=== PATIENT | female | born 1935 | race Caucasian/White ===

== ENCOUNTER → 2018-06-03 | Outpatient (RCR) | payer MEDICARE, OTHER | END | disposition home or self-care (01) | LOC: CR3 05-04 13:00 | PROVIDERS: ATTEND Internal Medicine | DX: Z29.8 Encounter for other specified prophylactic measures (principal) ==

== ENCOUNTER 2018-07-08 15:39 | Outpatient (RCR) | payer MEDICARE, OTHER | END 2018-07-15 | disposition home or self-care (01) | LOC: CR3 15:39 | PROVIDERS: ATTEND Internal Medicine | DX: Z29.8 Encounter for other specified prophylactic measures (principal) ==

== ENCOUNTER 2018-08-08 13:37 | Outpatient (RCR) | payer MEDICARE, OTHER | END 2018-08-24 | disposition home or self-care (01) | LOC: CR3 13:37 | PROVIDERS: ATTEND Internal Medicine | DX: Z29.8 Encounter for other specified prophylactic measures (principal) ==

== ENCOUNTER 2018-11-09 13:03 | Outpatient (RCR) | payer MEDICARE, OTHER | END 2018-11-22 09:57 | disposition home or self-care (01) | PROVIDERS: ATTEND Internal Medicine | DX: M25.512 Pain in left shoulder (principal) ==

== ENCOUNTER 2022-04-03 10:25 | Outpatient (RCR) | payer MEDICARE, OTHER | END 2022-04-05 | disposition home or self-care (01) | LOC: CR 10:25 | DX: Z29.8 Encounter for other specified prophylactic measures (principal); Z95.5 Presence of coronary angioplasty implant and graft | CPT/HCPCS: 93798 ==

== ENCOUNTER 2022-05-04 15:21 | Outpatient (RCR) | payer MEDICARE, OTHER | END 2022-05-06 | disposition home or self-care (01) | LOC: CR 15:21 | PROVIDERS: ATTEND Internal Medicine Cardiovascular Disease | DX: Z29.8 Encounter for other specified prophylactic measures (principal); Z95.5 Presence of coronary angioplasty implant and graft | CPT/HCPCS: 93798 ==

== ENCOUNTER → 2022-06-05 | Outpatient (RCR) | payer MEDICARE, OTHER | END | disposition home or self-care (01) | LOC: CR 05-08 07:21 | PROVIDERS: ATTEND Internal Medicine Cardiovascular Disease | DX: Z29.8 Encounter for other specified prophylactic measures (principal); Z95.5 Presence of coronary angioplasty implant and graft | CPT/HCPCS: 93798 ==

== ENCOUNTER 2022-07-01 10:14 | Outpatient (RCR) | payer MEDICARE, OTHER | END 2022-07-06 | disposition home or self-care (01) | LOC: CR 10:14 | PROVIDERS: ATTEND Internal Medicine Cardiovascular Disease | DX: Z29.8 Encounter for other specified prophylactic measures (principal); Z95.5 Presence of coronary angioplasty implant and graft | CPT/HCPCS: 93798 ==

== ENCOUNTER → 2022-08-05 | Outpatient (RCR) | payer MEDICARE, OTHER | END | disposition home or self-care (01) | LOC: CR 07-08 06:32 | PROVIDERS: ATTEND Internal Medicine Cardiovascular Disease | DX: Z29.8 Encounter for other specified prophylactic measures (principal); Z95.5 Presence of coronary angioplasty implant and graft | CPT/HCPCS: 93798 ==

== ENCOUNTER 2022-08-12 10:16 | Outpatient (RCR) | payer MEDICARE, OTHER | END 2022-09-05 | disposition home or self-care (01) | LOC: CR 10:16 | PROVIDERS: ATTEND Internal Medicine Cardiovascular Disease | DX: Z29.8 Encounter for other specified prophylactic measures (principal); Z95.5 Presence of coronary angioplasty implant and graft | CPT/HCPCS: 93798 ==

== ENCOUNTER 2022-08-19 10:30 | Outpatient (RCR) | payer MEDICARE, OTHER | END 2022-10-05 | disposition home or self-care (01) | LOC: CR3 10:30 | DX: Z29.8 Encounter for other specified prophylactic measures (principal) ==